=== PATIENT | female | born 1980 | race Caucasian/White ===

== ENCOUNTER 2020-01-08 03:10 | Emergency (ER) | payer OTHER ==
[~2020-01-08] VITALS: Ht 160 cm; Wt 53.5 kg
[~2020-01-08 03:10] MED LIST: SYNTHROID112 MCG PO; ZYRTEC10 MG PO
[2020-01-08] MEDS ORDERED: ARMOUR THYROID60 M1 (03:27)
[2020-01-08] MEDS ORDERED: ARMOUR THYROID15 MG (03:27)
[2020-01-08] MEDS ORDERED: LEVALBUTER1.25 MG/3 IH (06:00)
[2020-01-08] MEDS ORDERED: MEDROLPACK PO (06:00)
[2020-01-08] MEDS ORDERED: SINGULAIR 10MG10 MG PO (06:00)
[2020-01-08] MEDS ORDERED: BUDESONIDE0.5 MG/21 IH (06:00)
== END 2020-01-08 06:30 | disposition home or self-care (01) ==
LOC: ER 03:10
DX: J45.901 Unspecified asthma with (acute) exacerbation (principal); Z03.818 Encounter for observation for suspected exposure to other biological agents ruled out

== ENCOUNTER 2020-02-19 01:15 | Emergency (ER) | payer OTHER ==
[~2020-02-19] VITALS: Ht 172.7 cm; Wt 53.5 kg
[~2020-02-19 01:15] MED LIST changes: +ARMOUR THYROID15 MG; +ARMOUR THYROID60 M1; +BUDESONIDE0.5 MG/21 IH; +LEVALBUTER1.25 MG/3 IH; +MEDROLPACK PO; +SINGULAIR 10MG10 MG PO
[2020-02-19] MEDS ORDERED: XOPENEX HFA15 GM IH (02:33)
[2020-02-19] MEDS ORDERED: BUDESONIDE0.5 MG/2 M IH (02:33)
[2020-02-19] MEDS ORDERED: MEDROLPACK PO (02:33)
[2020-02-19] MEDS ORDERED: SINGULAIR10 MG PO (02:33)
[2020-02-19] MEDS ORDERED: XOPENEX0.63 MG/3 IH (02:33)
== END 2020-02-19 02:42 | disposition home or self-care (01) ==
LOC: ER 01:15
DX: J45.998 Other asthma (principal)

== ENCOUNTER → 2020-03-09 | Emergency (ER) | payer OTHER ==
[~2020-03-09] VITALS: Ht 160 cm; Wt 53.5 kg
[~2020-03-09] MED LIST changes: +BUDESONIDE0.5 MG/2 M IH; +PREDNISONE20 M1 PO; +SINGULAIR10 MG PO; +XOPENEX HFA15 GM IH; +XOPENEX0.63 MG/3 IH
== END | disposition home or self-care (01) ==
LOC: ER 23:03
DX: J98.01 Acute bronchospasm (principal)

== ENCOUNTER → 2021-03-28 | Emergency (ER) | payer OTHER ==
[~2021-03-28] VITALS: Ht 160 cm; Wt 54.4 kg
== END | disposition home or self-care (01) ==
LOC: ER 00:10
DX: J45.902 Unspecified asthma with status asthmaticus (principal); R06.02 Shortness of breath; R53.81 Other malaise

== ENCOUNTER 2021-09-17 22:19 | Emergency (ER) | payer OTHER ==
[~2021-09-17] VITALS: Ht 160 cm; Wt 52.6 kg
[2021-09-18] MEDS ORDERED: ZYNCOF 20-400120 ML PO (02:57)
== END 2021-09-18 03:08 | disposition home or self-care (01) ==
LOC: ER 22:19
DX: J45.909 Unspecified asthma, uncomplicated (principal)

== ENCOUNTER 2021-10-10 22:14 | Emergency (ER) | payer OTHER ==
[~2021-10-10] VITALS: Ht 160 cm; Wt 53.5 kg
[~2021-10-10 22:14] MED LIST changes: +ZYNCOF 20-400120 ML PO
== END 2021-10-10 22:54 | disposition home or self-care (01) ==
LOC: ER 22:14
DX: J98.01 Acute bronchospasm (principal)

== ENCOUNTER 2024-02-23 23:19 | Emergency (ER) | payer OTHER ==
[~2024-02-23] VITALS: Ht 160 cm; Wt 53.5 kg
[2024-02-24] MEDS ORDERED: LEVALBUTEROL HCL 1.25 MG/3 ML SOLUTION IH STA (03:15)
[2024-02-24] MEDS ORDERED: METHYLPREDNISOLONE SOD SUCC 125 MG VIAL IV STA (03:16)
[2024-02-24] MEDS ORDERED: METHYLPREDNISOLONE SOD SUCC 125 MG VIAL ONE (03:24)
[2024-02-24] MEDS ORDERED: SYMBICORT 16010.2 GM IH (04:22)
== END 2024-02-24 04:44 | disposition home or self-care (01) ==
LOC: ER 23:19
DX: R06.02 Shortness of breath (principal); Z88.8 Allergy status to other drugs, medicaments and biological substances; Z87.09 Personal history of other diseases of the respiratory system